=== PATIENT | male | born 1950 | race Caucasian/White ===

== ENCOUNTER 2024-12-06 19:11 | Emergency (ER) | payer MEDICARE, OTHER, SELFPAY ==
[2024-12-06] VITALS (8 sets, daily range): BP systolic 146–176; BP diastolic 66–96; BMI 29.4
--- NOTE | 2024-12-06 19:24 | ED.CVA ---
Addendum entered and electronically signed by Marce Van MD 12/06/24 20:52:
EKG done at 8:29 PM. Shows atrial fibrillation with a heart rate of 62. Normal axis. Nonspecific ST segments
Original Note:
History of Present Illness
General
Chief Complaint: CVA/TIA Symptoms
Source: patient
Exam Limitations: none
Time Seen by Provider: 12/06/24 19:12
Nursing documentation reviewed up to this point in time: agreed with
Onset of Stroke Symptoms
Onset of symptoms known: Yes
Date of onset of symptoms: 12/06/24
Time of onset of symptoms: 13:00
Time pt last seen normal is known: Yes
Date last time pt seen normal: 12/06/24
Time last time pt seen normal: 12:30
History of Present Illness
History of Present Illness:
The patient is a 74-year-old man who arrives on a prehospital stroke alert with acute onset of right body numbness and weakness. His reports that at around 1:00 PM today, the patient complained of tingling in his right arm. His reports
that she thought maybe he had just 'slept funny'. She reports that gradually over time, his symptoms progressed to weakness of the right arm and right leg. She then called 911 because she was unable to get him to walk into their car to come to the
hospital. The patient has significant right facial droop and is not moving his right arm. He is able to wiggle his toes on the right side. He is looking towards the left side. He is unable to speak but attempting to speak. His denies any
known medical problems. He does not take any medications.
Past History
Past History
ED Past Medical History: None
ED Past Surgical History: Other
Social History
Tobacco: Other
Alcohol: Other
Drug: Other
Personal:
Living: with family
Employment: Other
Family History
Family History: Other
Review of Systems
Review of Systems
Allergies reviewed?: Yes
Unable to obtain full review of systems at this time due to: non-verbal
Other source history: other (Spouse)
All Other Systems: ROS reviewed and negative except as documented in HPI and ROS
Constitutional: Reports no symptoms
EENT: Reports no symptoms
Respiratory: Reports no symptoms
Cardiac: Reports no symptoms
ABD/GI: Reports no symptoms
: Reports no symptoms
Musculoskeletal: Reports no symptoms
Skin: Reports no symptoms
Neurological: Reports other
Endocrine: Reports no symptoms
Hematologic/Lymphatic: Reports no symptoms
Psychiatric: Reports no symptoms
Phy Exam
Physical Exam
Physical Exam:
Physical Exam
General: Patient has obvious right facial droop. Looking to the left side. However, fully awake and appears comfortable
Neck: supple. no meningeal signs. normal psoterior pharynx
Heart: s1/s2 regular rate and rhythm
Lungs: no acute respiratory distress. clear bilaterally
Abdomen: normal bowel sounds. not tender. no CVAT. Urinated in pants
Neuro: alert, attempting to speak but sounds are incomprehensible. Fully awake. 5 out of 5 strength in left arm and left leg. Right sided neglect. Does not move right arm. Can move right foot but cannot resist gravity
Skin: no rash
Psychiatric: well kept. interactive and cooperative
Extremities: no edema. no calf tenderness. negative homans. good distal pulses
Course
Orders/Labs/Results
Orders:
Orders
12/06/24 19:14
CT HEAD STROKE ALERT W/o Cont Urgent
Comment:
Reason For Exam: R sided weakness
12/06/24 19:15
NEUROLOGY CONSULT Urgent
Consulting Provider: Maru Celeste
Was physician already notified: Yes
Reason for consult: stroke alert
12/06/24 19:39
Complete Blood Count/With Diff Urgent
Comprehensive Metabolic Panel Urgent
PTT Urgent
Prothrombin Time Urgent
12/06/24 20:00
Labetalol HCl [Trandate] 400 mg Empty Viaflex Container 100 ml [Viaflex Empty Container] 0 ml IV PER PROTOCOL
Initial dose in mg/min, then titrate:: 4
Titrate to keep:: Other
Titrate to keep other:: SBP between 130 and 150
Titrate by mg/min:: 0.5 mg/min
Frequency of titrations (minutes):: 15
Additional Titration Instructions:: Bolus with 20 mg IV every 15 minutes PRN dose increase
Maximum dose in mg/min:: 4
Begin to taper infusion when:: Remained at goal for 4hrs
Taper by mg/min:: 0.5 - 1 mg/min
Frequency of taper (minutes) if patient maintains goal:: 30
Taper to off?: Yes
If infusion off & no longer maintaining goal:: Contact Provider
12/06/24 20:21
Electrocardiogram (*1) Urgent
Reason for Study: TIA/Stroke
EKG- Treatment ONCE
Abnormal Lab Results
12/06/24
19:39
RBC 3.99 L 10^6/uL
(4.70-6.10)
MCV 98.0 H fL
(80.0-94.0)
MCH 33.8 H pg
(27.0-31.0)
MPV 10.6 H fL
(7.4-10.4)
Abs Immat Gran (auto) 0.1 H 10^3/uL
(0-0.05)
Absolute Neuts (auto) 7.6 H 10^3/uL
(1.4-6.5)
Absolute Lymphs (auto) 0.8 L 10^3/uL
(1.2-3.4)
Absolute Monos (auto) 0.7 H 10^3/uL
(0.1-0.6)
Immature Gran % 0.7 H %
(0-0.5)
Neutrophils % 83.4 H %
(42.2-75.2)
Lymphocytes % 8.4 L %
(20.5-51.1)
PT 18.2 H Sec
(11.4-14.6)
Sodium 134 L mmol/L
(135-145)
BUN 27 H mg/dl
(9-20)
Glucose 118 H mg/dl
(70-99)
12/06/24 19:39
12/06/24 19:39
Vital Signs
Initial and Last Documented VS:
Initial Vital Signs
Temp Pulse Resp BP Pulse Ox
98.9 F 63 16 174/96 96
12/06/24 19:14 12/06/24 19:14 12/06/24 19:14 12/06/24 19:14 12/06/24 19:14
Last Documented Vital Signs
Temp Pulse Resp BP Pulse Ox
98.9 F 70 16 176/66 97
12/06/24 19:14 12/06/24 20:20 12/06/24 19:14 12/06/24 20:20 12/06/24 19:46
MDM/Problems Addressed
Differential Diagnosis Includes:
Acute ischemic stroke, acute hemorrhagic stroke, seizure
MDM/Problems Addressed:
Patient arrives with acute right-sided weakness and right-sided neglect
Acute Exacerbation and/or Progression of Chronic Illness:
Patient is acutely hypertensive which could cause an acute stroke
Acute Exacerbation and/or Progression of Chronic Illness: HTN
*Radiology
Radiology exam reviewed: preliminary read by ED provider (CT reviewed by me. Large intraparenchymal hemorrhage) and radiology read reviewed
*Pulse Oximetry
Patient hypoxic: no
*Derrick Follower Interpretation
Rate: normal
Interpretation: normal
Rhythm: sinus
*Critical Care Note
Total Time (30-74mins, 75-104mins- exclusive of procedures): 56 minutes (56 minutes of critical care given to patient including reviewing his lab work, EKG, reassessing his blood pressure, discussing the case with transfer team at [facility], including
Dr. Cerrato neurosurgery)
Data Reviewed
Source: spouse
Patient Management
Social determinants of health affecting care: Living situation and Strong social support
Discussion with other providers: Other (Transfer team at [facility] including Dr. Aguayo, neurosurgery)
Escalation/DeEscalation of care consider admission/obs:
Head of bed placed upright to 45 degrees
Labetalol drip started with goals of obtaining blood pressure between 130-150 systolic as recommended by neurosurgery at [facility]
gave written consent and understands risks and benefits of transfer to [facility], including neurosurgery available there
Dr aguayo agreed to accept patient to his service into the NICU
Update Note
Update Note:
8:49 PM patient remains comfortable and fully awake appearing. Blood pressure is 140 systolic
ED Attending Note
-
Portions of this chart may have been created with voice recognition software.� Occasional wrong word or��sound alike� substitutions may have occurred due to the inherent limitations of voice recognition software.
Discharge Plan
Departure
Patient Disposition: Acute Care Hospital
Date of Disposition: 12/06/24
Time of Disposition: 20:16
Admit to doctor: Dr Aguayo, [facility]
Patient with high blood pressure during this ER visit?: Yes
Condition: Critical
Covid-19: Not Applicable
Discharge Problem:
Acute spontaneous intraparenchymal intracranial hemorrhage
Prescriptions:
No Action
No Current Medications
0
Hospital Transfer
Other hospital: [facility]
I certify that the patient requires transfer: Yes
Discussed case with accepting physician: Dr Aguayo
Reason for transfer: specialties available
Interventions
Interventions:
*Risk Screen - Suicide Last Done: 12/06/24 19:14
*General Assessment Last Done: 12/06/24 19:14
*Neglect/Abuse Screening Last Done: 12/06/24 19:14
*ED- Fall Risk Assessment Last Done: 12/06/24 19:14
*ED COVID-19 Vaccine History Last Done: 12/06/24 19:14
ED- Pulmonary Assessment Last Done: 12/06/24 19:41
ED- Neurological Assessment Last Done: 12/06/24 19:41
ED- Cardiac Assessment Last Done: 12/06/24 19:41
ED Swallowing Screen Last Done: 12/06/24 19:41
Discharge Date and Time
Print Language: AMHARIC
[2024-12-06 19:59] LABS: INR 1.48; PT 18.2 Sec (11.4-14.6)
[2024-12-06 20:00] LABS: APTT 30.7 Sec (23.4-35.0)
[2024-12-06 20:02] LABS: ALT (SGPT) 22 U/L (0-50); AST (SGOT) 34 U/L (17-59); Alkaline Phosphatase 51 U/L (38-126); Blood Urea Nitrogen 27 mg/dl (9-20); Calcium 8.5 mg/dl (8.4-10.2); Carbon Dioxide 24 mmol/L (22-30); Chloride 101 mmol/L (98-107); Estimated Creatinine Clearance 81 ml/min; Glucose 118 mg/dl (70-99); Potassium 3.9 mmol/L (3.5-5.1); Sodium 134 mmol/L (135-145); eGFR > 60.00
[2024-12-06 20:09] LABS: % Basophils 0.3 % (0-2); % Immature Granulocytes 0.7 % (0-0.5); % Lymphocytes 8.4 % (20.5-51.1); % Monocytes 7.2 % (1.7-9.3); % Neutrophils 83.4 % (42.2-75.2); Absolute Immature Granulocytes 0.1 10^3/uL (0-0.05); Absolute Lymphocytes 0.8 10^3/uL (1.2-3.4); Absolute Monocytes 0.7 10^3/uL (0.1-0.6); Absolute Neutrophils 7.6 10^3/uL (1.4-6.5); Hematocrit 39.1 % (39.0-52.0); Hemoglobin 13.5 g/dL (13.0-18.0); Mean Corp Hgb Conc. 34.5 g/dL (33.0-37.0); Mean Corpuscular Hgb 33.8 pg (27.0-31.0); Mean Platelet Volume 10.6 fL (7.4-10.4); Nucleated Red Blood Cells % 0 % (-); Platelet Count 135 10^3/uL (130-400); Red Blood Cell Count 3.99 10^6/uL (4.70-6.10); Red Cell Dist. Width 13.8 % (11.5-14.5); White Blood Cell Count 9.1 10^3/uL (4.8-10.8)
[2024-12-06] MEDS: TRANDATE 80 MG IV (20:20)
== END 2024-12-06 22:12 | disposition short-term general hospital (02) ==
LOC: EMR 19:11
PROVIDERS: CONSULT PHYSICIAN Psychiatry & Neurology Neurology; EMERGENCY PHYSICIAN Emergency Medicine
DX: I61.1 Nontraumatic intracerebral hemorrhage in hemisphere, cortical (principal); R47.01 Aphasia; R29.810 Facial weakness; G81.91 Hemiplegia, unspecified affecting right dominant side; I10 Essential (primary) hypertension
CPT/HCPCS: 99291; 96374; 70450; 80053; 85025; 85610; 85730; 93005

== ENCOUNTER → 2025-03-21 09:24 | Outpatient (REF) | payer MEDICARE, OTHER, SELFPAY | LOC: MRI 09:24 | PROVIDERS: FAMILY PHYSICIAN Internal Medicine | DX: G93.89 Other specified disorders of brain (principal) | CPT/HCPCS: 70553; A9575 ==

== ENCOUNTER 2025-07-01 11:00 | Outpatient (RCR) | payer MEDICARE, OTHER, SELFPAY | END 2025-07-01 23:59 | disposition home or self-care (01) | LOC: ROT 11:00 | PROVIDERS: ATTENDING PHYSICIAN Internal Medicine | DX: I69.320 Aphasia following cerebral infarction (principal); I69.351 Hemiplegia and hemiparesis following cerebral infarction affecting right dominant side; Z73.6 Limitation of activities due to disability; Z98.890 Other specified postprocedural states | CPT/HCPCS: 97110; 97112; 97163; 97167; 97530 ==

== ENCOUNTER 2025-07-26 06:59 | Outpatient (RCR) | payer MEDICARE, OTHER, SELFPAY | END 2025-08-02 23:59 | disposition home or self-care (01) | LOC: RST 06:59 | PROVIDERS: ATTENDING PHYSICIAN Internal Medicine | DX: I69.320 Aphasia following cerebral infarction (principal); I69.351 Hemiplegia and hemiparesis following cerebral infarction affecting right dominant side; Z73.6 Limitation of activities due to disability; Z98.890 Other specified postprocedural states | CPT/HCPCS: 92507; 92523; 97014; 97110; 97112; 97140; 97530; 97535 ==

== ENCOUNTER → 2025-07-26 12:22 | Outpatient (REF) | payer MEDICARE, OTHER, SELFPAY | LOC: RCS 12:22 | PROVIDERS: ATTENDING PHYSICIAN Internal Medicine Cardiovascular Disease; FAMILY PHYSICIAN Internal Medicine | DX: E78.2 Mixed hyperlipidemia (principal); R01.1 Cardiac murmur, unspecified | CPT/HCPCS: 93306 ==